=== PATIENT | female | born 1950 | race Caucasian/White ===

== ENCOUNTER 2020-02-09 14:38 | Inpatient (IN) | payer OTHER, MEDICARE ==
--- NOTE | 2020-02-09 15:29 | ER Document Report ---
ED General - General Chief Complaint: Vomiting/Diarrhea Stated Complaint: VOMITING/DIARRHEA Time Seen by Provider: 02/09/20 15:28 Mode of Arrival: Medic Information source: Patient TRAVEL OUTSIDE OF THE [place] IN LAST 30 DAYS: No - HPI Onset: This morning Onset/Duration: Sudden Quality of pain: No pain Severity: Severe Pain Level: Denies Associated symptoms: Nausea, Vomiting, Weakness Exacerbated by: Denies Relieved by: Denies Similar symptoms previously: No Recently seen / treated by doctor: No Notes: 69 year old female with a history of HTN, CHF, Subclavian Obstruction, Appendectomy here in the ER for nausea, vomiting, diarrhea since this morning. The patient denies fevers, chills, sweats, known sick contacts, recent travel, ingestion of uncooked foods. The patient's last meal was lunch yesterday (TV dinner). The patient has noticed that her diarrhea is black in color. The patient says she has some mild pain in her rectal area before she has a bowel movement. The patient otherwise just has twinges of mild abdominal pains off and on. - Related Data Allergies/Adverse Reactions: Penicillins Allergy (Verified 02/09/20 17:48) Sulfa (Sulfonamide Antibiotics) Allergy (Verified 02/09/20 17:48) Past Medical History - General Information source: Patient - Social History Smoking Status: Current Some Day Smoker Frequency of alcohol use: Occasional Drug Abuse: None Lives with: Family Family History: Reviewed & Not Pertinent - Past Medical History Cardiac Medical History: Reports: Hx Congestive Heart Failure, Hx Hypertension Pulmonary Medical History: Reports: None EENT Medical History: Reports: None Neurological Medical History: Reports: None Endocrine Medical History: Reports: None Renal/ Medical History: Reports: None Malignancy Medical History: Reports: None GI Medical History: Reports: None Musculoskeletal Medical History: Reports None Skin Medical History: Reports None Psychiatric Medical History: Reports: None Traumatic Medical History: Reports: None Infectious Medical History: Reports: None Past Surgical History: Reports: Hx Appendectomy Review of Systems - Review of Systems Constitutional: No symptoms reported EENT: No symptoms reported Cardiovascular: No symptoms reported Respiratory: No symptoms reported, Stridor Gastrointestinal: Diarrhea, Nausea, Black stools Genitourinary: No symptoms reported Female Genitourinary: No symptoms reported Musculoskeletal: No symptoms reported Skin: No symptoms reported Hematologic/Lymphatic: No symptoms reported Neurological/Psychological: No symptoms reported -: Yes All other systems reviewed and negative Physical Exam - Vital signs Vitals: Resp 20 02/09/20 15:18 - Notes Notes: GENERAL: Somewhat ill-appearing, well-nourished and in no acute distress. HEAD: Atraumatic, normocephalic. EYES: Pupils equal round and reactive to light, extraocular movements intact, sclera anicteric, conjunctiva are normal. ENT: Normal external ears, nares patent, oropharynx clear without exudates. Moist mucous membranes. NECK: Normal range of motion, supple without lymphadenopathy or JVD. LUNGS: Breath sounds clear to auscultation bilaterally and equal. No wheezes rales or rhonchi. HEART: Regular rate and rhythm without murmurs, rubs or gallops. ABDOMEN: Soft, nontender, normoactive bowel sounds. No guarding, no rebound. No masses appreciated. EXTREMITIES: Normal range of motion, no pitting or edema. No clubbing or cyanosis. NEUROLOGICAL: Cranial nerves II through XII grossly intact. Normal speech, normal gait. PSYCH: Normal mood, normal affect. SKIN: Warm, Dry, normal turgor, no rashes or lesions noted. Course - Re-evaluation Re-evalutation: 02/09/20 17:22 The patient is here for nausea, vomiting, diarrhea, and black stools. Labs show elevated WBC count in the 20s and a hemoglobin in the 8s. Plan to obtain CT abdomen/pelvis to rule out an infectious process. Will likely admit regardless of outcome of the CT since patient's hemoglobin is in the 8s with no prior labs for comparison. An infectious process seems likely the primary issues followed by GI bleeding likely from inflammation. Patient says she last had a colonoscopy about 7 years ago and she had pre cancerous polyps then. 02/09/20 19:[address] shows ascending colitis. Patient treated with Levoquin and Flagyl and fluids. I consulted Dr. Ybarra of GI and he will follow along with the patient. Patient was admitted by Dr. Nice. - Vital Signs Vital signs: Temp Pulse Resp BP Pulse Ox 97 F L 18 117/68 96 02/09/20 15:19 02/09/20 18:50 02/09/20 18:50 02/09/20 19:00 - Laboratory Result Diagrams: 02/09/20 15:18 02/09/20 15:18 Laboratory results interpreted by me: 02/09/20 02/09/20 15:18 15:18 WBC 23.0 H RBC 2.57 L Hgb 8.4 L Hct 24.8 L RDW 14.1 H Seg Neuts % (Manual) 88 H Lymphocytes % (Manual) 5 L Abs Neuts (Manual) 20.9 H Sodium 134.8 L Chloride 109 H Carbon Dioxide 19 L BUN 47 H Glucose 113 H Total Protein 5.4 L Albumin 3.1 L - Diagnostic Test Radiology reviewed: Image reviewed, Reports reviewed Discharge - Discharge Clinical Impression: Colitis Nausea & vomiting Qualifiers: Vomiting type: unspecified Vomiting Intractability: intractable Qualified Code(s): R11.2 - Nausea with vomiting, unspecified Diarrhea Qualifiers: Diarrhea type: unspecified type Qualified Code(s): R19.7 - Diarrhea, unspecified GI bleed Qualifiers: GI bleed type/associated pathology: unspecified gastrointestinal hemorrhage type Qualified Code(s): K92.2 - Gastrointestinal hemorrhage, unspecified Condition: Fair Disposition: ADMITTED INPATIENT Admitting Provider: Tex (Hospitalist) Unit Admitted: [facility]
[2020-02-09] MEDS ORDERED: ONDANSETRON HCL INJ/PF 4 MG/2 ML SDV IV ONE (15:43)
[2020-02-09] MEDS ORDERED: NORMAL SALINE 1000 ML 1,000 ML IV ONE (15:44)
[2020-02-09 15:48] LABS: HEMATOCRIT 24.8 % (36.0-47.0); HEMOGLOBIN 8.4 g/dL (12.0-15.5); MEAN CORPUSCULAR HEMOGLOBIN 32.5 pg (27.0-33.4); MEAN CORPUSCULAR HGB CONC 33.7 g/dL (32.0-36.0); MEAN CORPUSCULAR VOLUME 97 fl (80-97); PLATELET COUNT 302 10^3/uL (150-450); RED BLOOD COUNT 2.57 10^6/uL (3.72-5.28); RED CELL DISTRIBUTION WIDTH 14.1 % (11.5-14.0)
[2020-02-09 16:04] LABS: ALBUMIN 3.1 g/dL (3.5-5.0); ALKALINE PHOSPHATASE 40 U/L (38-126); ANION GAP 7 (5-19); ASPARTATE AMINO TRANSFERASE 15 U/L (14-36); BILIRUBIN,TOTAL 0.3 mg/dL (0.2-1.3); BLOOD UREA NITROGEN 47 mg/dL (7-20); CALCIUM 8.8 mg/dL (8.4-10.2); CARBON DIOXIDE 19 mmol/L (22-30); CHLORIDE 109 mmol/L (98-107); GLUCOSE 113 mg/dL (75-110); POTASSIUM 4.9 mmol/L (3.6-5.0); TOTAL PROTEIN 5.4 g/dL (6.3-8.2)
[2020-02-09 16:28] LABS: ABSOLUTE LYMPHOCYTES# (MANUAL) 1.2 10^3/uL (0.5-4.7); ABSOLUTE MONOCYTES # (MANUAL) 0.9 10^3/uL (0.1-1.4); BAND NEUTROPHILS % (MANUAL) 3 % (3-5); BASOPHILS % (MANUAL) 0 % (0-2); EOSINOPHILS % (MANUAL) 0 % (0-6); LYMPHOCYTES % (MANUAL) 5 % (13-45); MONOCYTES % (MANUAL) 4 % (3-13); SEGMENTED NEUTROPHILS % (MAN) 88 % (42-78); TOTAL CELLS COUNTED 100
[2020-02-09 16:29] LABS: ANISOCYTOSIS SLIGHT; PLATELET COMMENT ADEQUATE
--- NOTE | 2020-02-09 18:23 | RADIOLOGY REPORT (SQ) ---
EXAM DESCRIPTION: CT ABD/PELVIS WITH IV ONLY IMAGES COMPLETED DATE/TIME: 02/09/2020 6:05 pm REASON FOR STUDY: eval for cause of abdominal pain and GI gleeding COMPARISON: None. TECHNIQUE: CT scan of the abdomen and pelvis performed using helical scanning technique with dynamic intravenous contrast injection. No oral contrast. Images reviewed with lung, soft tissue, and bone windows. Reconstructed coronal and sagittal MPR images reviewed. Delayed images for evaluation of the urinary system also acquired. All images stored on PACS. All CT scanners at this facility use dose modulation, iterative reconstruction, and/or weight based d osing when appropriate to reduce radiation dose to as low as reasonably achievable (ALARA). [facility]: Dose Right [facility]: CareDose [facility]: Dose Right [facility]: Teradose 4D [facility]: [employer] CONTRAST TYPE AND DOSE: contrast/concentration: Isovue 350.00 mg/ml; Total Contrast Delivered: 56.0 ml; Total Saline Delivered: 65.0 ml RENAL FUNCTION: GFR > 60. RADIATION DOSE: CT Rad equipment meets quality standard of care and radiation dose reduction techniq ues were employed. CTDIvol: 4.8 - 5.2 mGy. DLP: 483 mGy-cm.. LIMITATIONS: None. FINDINGS: LOWER CHEST: No significant findings. No nodules or infiltrates. LIVER: Normal size. No masses. No dilated ducts. SPLEEN: Normal size. No focal lesions. PANCREAS: Calcifications in the pancreas suggestive of chronic pancreatitis. No active inflammatory changes currently. No gross mass or duct dilatation. GALLBLADDER: Mildly distended. No identified stones by CT criteria. No inflammatory changes to sugge st cholecystitis. ADRENAL GLANDS: No significant masses or asymmetry. RIGHT KIDNEY AND URETER: Suspect tiny cysts. No obstructive changes or stones. LEFT KIDNEY AND URETER: Sizable stone in the renal pelvis measures almost 1 cm in maximal dimension w ith Hounsfield units of greater than 1,400. No suggestion of obstruction. AORTA AND VESSELS: Heavily atherosclerotic aorta. No aneurysm detected. No arterial occlusion or ve nous clot. RETROPERITONEUM: No retroperitoneal adenopathy, hemorrhage or masses. BOWEL AND PERITONEAL CAVITY: Thickening of the wall of the ascending colon is suggested. Remaining c olon is decompressed and looks normal. No mechanical bowel obstruction. No ascites or abnormal gas. APPENDIX: Surgically absent. PELVIS: No mass. No free fluid. Normal bladder. ABDOMINAL WALL: No masses. No hernias. BONES: Osteopenic without fracture or bone lesion. Degenerative listhesis at the lumbosacral junctio n. OTHER: No other significant finding. IMPRESSION: 1. Suspicious for ascending colitis. 2. Heavy atherosclerosis. 3. Changes of chronic pancreatitis. 4. Nonobstructive left nephrolithiasis. TECHNICAL DOCUMENTATION: JOB ID: [id number] Quality ID # [id number]: Final reports with documentation of one or more dose reduction techniques (e.g., Au tomated exposure control, adjustment of the mA and/or kV according to patient size, use of iterative reconstruction technique) 2010 [employer]- All Rights Reserved Reading location - IP/workstation name: [email or web address]
[2020-02-09] MEDS ORDERED: METRONIDAZOLE 500 MG/NS RTU 500 MG/100 ML RTUPB IV ONE (18:29)
[2020-02-09] MEDS ORDERED: LEVOFLOXACIN 750 MG/D5W RTU 750 MG/150 ML RTUPB IV ONE (18:29)
--- NOTE | 2020-02-09 18:58 | PDOC CONSULTATION ---
Consultation Consult Date: 02/09/20 Provider Consulted: RAYA LOPEZ Consult reason:: melena, diarrhea. chronic pancreatitis. abnormal ct scan showing possibl ascending colitis History of Present Illness History of Present Illness: LINDA JOINER is a 69 year old female patient presents with weakness , melena and diarrhea had CT scan done in the ED noted to have several abnormal findings including chronic pancreatitis and ascending colitis referred for admission requesting GI consult patient noted to be anemic and complaining of black stools needs to be admitted to have GI work up done suspicious for possible infectious process but will need both EGD ( to work up for melena and her anemia) also will need colonoscopy to exclude causes of her ascending colitis could be infectious but her diarrhea may be more due to her chronic pancreatitis will exclude other etiology Past Medical History Cardiac Medical History: Reports: Congestive Heart Failure, Hypertension Pulmonary Medical History: Reports: None EENT Medical History: Reports: None Neurological Medical History: Reports: None Endocrine Medical History: Reports: None Renal/ Medical History: Reports: None Malignancy Medical History: Reports: None GI Medical History: Reports: None Musculoskeltal Medical History: Reports: None Skin Medical History: Reports: None Psychiatric Medical History: Reports: None Traumatic Medical History: Reports: None Infectious Medical History: Reports: None Past Surgical History Past Surgical History: Reports: Appendectomy Social History Lives with: Family Smoking Status: Current Some Day Smoker Family History Family History: Reviewed & Not Pertinent Parental Family History Reviewed: Yes Children Family History Reviewed: Unknown Sibling(s) Family History Reviewed.: Unknown Medication/Allergy Allergies/Adverse Reactions: Penicillins Allergy (Verified 02/09/20 17:48) Sulfa (Sulfonamide Antibiotics) Allergy (Verified 02/09/20 17:48) Review of Systems Constitutional: PRESENT: weakness. ABSENT: fever(s), headache(s), night sweats Eyes: ABSENT: visual disturbances Ears: ABSENT: hearing changes Nose, Mouth, and Throat: ABSENT: mouth pain, sore throat Respiratory: ABSENT: dyspnea, hemoptysis Gastrointestinal: ABSENT: diarrhea, dysphagia, hematochezia Genitourinary: ABSENT: dysuria, hematuria Integumentary: ABSENT: lesions, pruritus Neurological: ABSENT: syncope, tingling, tremor(s), vertigo Endocrine: ABSENT: polydipsia, polyphagia, polyuria Hematologic/Lymphatic: ABSENT: easy bruising Physical Exam Vital Signs: Temp Pulse Resp BP Pulse Ox 97 F L 19 122/63 99 02/09/20 15:19 02/09/20 18:04 02/09/20 17:01 02/09/20 16:03 Intake & Output 02/08/20 02/09/20 02/10/20 06:59 06:59 06:59 Intake Total 1000 Balance 1000 Weight 58.967 kg General appearance: PRESENT: mild distress Head exam: PRESENT: atraumatic, normocephalic Eye exam: PRESENT: EOMI, PERRLA, scleral icterus Mouth exam: PRESENT: moist, neck supple Neck exam: ABSENT: meningismus, tenderness, thyromegaly Respiratory exam: PRESENT: symmetrical. ABSENT: rhonchi, stridor Cardiovascular exam: PRESENT: RRR, +S1, +S2 GI/Abdominal exam: PRESENT: normal bowel sounds, soft. ABSENT: Arango's sign, organolmegaly, rebound Extremities exam: ABSENT: joint swelling, pedal edema Musculoskeletal exam: PRESENT: full ROM Neurological exam: PRESENT: alert, altered. ABSENT: CN II-XII grossly intact Skin exam: PRESENT: normal color. ABSENT: mottled, pallor, urticaria, vesicles Results Laboratory Results: 02/09/20 15:18 02/09/20 15:18 02/09/20 02/09/20 02/09/20 15:18 15:18 15:18 WBC 23.0 H RBC 2.57 L Hgb 8.4 L Hct 24.8 L MCV 97 MCH 32.5 MCHC 33.7 RDW 14.1 H Plt Count 302 Seg Neutrophils % Not Reportable Sodium 134.8 L Potassium 4.9 Chloride 109 H Carbon Dioxide 19 L Anion Gap 7 BUN 47 H Creatinine 0.87 Est GFR ( Amer) > 60 Glucose 113 H Calcium 8.8 Magnesium 1.7 Total Bilirubin 0.3 AST 15 Alkaline Phosphatase 40 Total Protein 5.4 L Albumin 3.1 L Blood Type A POSITIVE Antibody Screen NEGATIVE Impressions: Abdomen/Pelvis CT 02/09/20 16:59 IMPRESSION: 1. Suspicious for ascending colitis. 2. Heavy atherosclerosis. 3. Changes of chronic pancreatitis. 4. Nonobstructive left nephrolithiasis. Assessment & Plan - Diagnosis (1) Abnormal CT of the abdomen Plan: ascending colitis, will need colonoscopy Risks, benefits and alternatives are discussed will schedule once stabalized (2) Melena Plan: GI bleeding , will need EGD associated with anemia can do at same time as colonoscopy start on PPI for now (3) Chronic pancreatitis Plan: could be the cause of her diarrhea trial of pancreatic enzymes prior to each meal (4) Diarrhea Qualifiers: Diarrhea type: unspecified type Qualified Code(s): R19.7 - Diarrhea, unspecified Plan: send stool studies for infectious causes however infectious processes tend to be stevens colonic could be due to her pancreatitis an isolated segment on CT could be an indication for possible ischemia as well will need colonoscopy as discussed above (5) Nausea & vomiting Qualifiers: Vomiting type: unspecified Vomiting Intractability: intractable Qualified Code(s): R11.2 - Nausea with vomiting, unspecified Is this a current diagnosis for this admission?: Yes Plan: will need EGD for peptic ulcer disease also having possible GI bleeding will need to be started on a PPI - Time Time Spent: 50 to 70 Minutes
[2020-02-09] MEDS ORDERED: PANTOPRAZOLE SODIUM 40 MG VIAL IV PRN (19:14)
[2020-02-09] MEDS ORDERED: PANTOPRAZOLE SODIUM 40 MG VIAL IV ONE ×2 (19:14→19:32)
[2020-02-09] MEDS ORDERED: HYDRALAZINE HCL INJ/PF 20 MG/1 ML SDV IV PRN (19:16)
[2020-02-09] MEDS ORDERED: CALCIUM CARBONATE 500 MG TAB.CHEW PO PRN (19:16)
[2020-02-09] MEDS ORDERED: IPRATROPIUM/ALBUTEROL 0.5-2.5 MG/3 ML AMPUL NEB PRN (19:17)
[2020-02-09] MEDS ORDERED: NORMAL SALINE 1000 ML 1,000 ML IV SCH ×2 (19:30→22:00)
[2020-02-09] MEDS: NORMAL SALINE 100 ML with PANTOPRAZOLE SODIUM 80 MG IV PRN ×2 (19:43)
[2020-02-09] MEDS ORDERED: PANTOPRAZOLE SODIUM 80 MG in NORMAL SALINE 100 ML IV ONE (20:30)
[2020-02-09] MEDS: NORMAL SALINE 1000 ML 1,000 ML IV SCH (21:00)
[2020-02-09] MEDS ORDERED: NORMAL SALINE 1000 ML 1,000 ML IV PRN (21:38)
[2020-02-09] MEDS ORDERED: ONDANSETRON HCL INJ/PF 4 MG/2 ML SDV IV PRN (22:31)
[2020-02-09] MEDS: METRONIDAZOLE 500 MG TABLET PO SCH (23:14)
[2020-02-09 23:37] LABS: APPEARANCE,URINE CLEAR; BILIRUBIN,URINE NEGATIVE (NEGATIVE); COLOR,URINE YELLOW; GLUCOSE, URINE NEGATIVE (NEGATIVE); KETONES,URINE NEGATIVE (NEGATIVE); LEUKOCYTE ESTERASE,URINE TRACE (NEGATIVE); NITRITE,URINE NEGATIVE (NEGATIVE); PROTEIN,URINE NEGATIVE (NEGATIVE); URINE SPECIFIC GRAVITY 1.032; UROBILINOGEN,URINE NEGATIVE mg/dL (<2.0)
[2020-02-10] MEDS: NORMAL SALINE 100 ML with PANTOPRAZOLE SODIUM 80 MG IV PRN ×6 (00:58→20:44)
[2020-02-10] MEDS: NORMAL SALINE 1000 ML 1,000 ML IV SCH (03:13)
--- NOTE | 2020-02-10 04:56 | PDOC H&P ---
History of Present Illness Admission Date/PCP: 02/09/20 19:25 Patient complains of: Nausea vomiting diarrhea History of Present Illness: LINDA JOINER is a 69 year old female with a past medical history of hypertension, congestive heart failure, subclavian obstruction, COPD and chronic bronchitis. She presents with 12 hours of abdominal pain nausea vomiting and diarrhea. Vomiting is without blood and consisted of oral intake. Diarrhea was black in color. She denies suspect meals, infectious contacts friends or family with similar symptoms or previous episode. In the emergency department she is found to have leukocytosis, anemia and Hemoccult positive stools. CT reveals ascending colitis. Her sports trainer Dr. Ybarra is consulted and she is started on Levaquin and Flagyl and referred to the hospitalist for admission. Past Medical History Cardiac Medical History: Reports: Congestive Heart Failure, Hypertension Pulmonary Medical History: Reports: Bronchitis, Chronic Obstructive Pulmonary Disease (COPD) EENT Medical History: Reports: None Neurological Medical History: Reports: None Endocrine Medical History: Reports: None Renal/ Medical History: Reports: None Malignancy Medical History: Reports: None GI Medical History: Reports: None Musculoskeltal Medical History: Reports: None Skin Medical History: Reports: None Psychiatric Medical History: Reports: Tobacco Dependency Traumatic Medical History: Reports: None Infectious Medical History: Reports: None Past Surgical History Past Surgical History: Reports: Appendectomy Social History Information Source: Patient, COUNT INCLUDES [facility] Records Lives with: Family Smoking Status: Current Every Day Smoker Frequency of Alcohol Use: Social - 2 glasses of wine per night Drugs: None - Advance Directive Resuscitation Status: Full Code Family History Family History: Hypertension Parental Family History Reviewed: Yes Children Family History Reviewed: Yes Sibling(s) Family History Reviewed.: Yes Medication/Allergy Home Medications: Amlodipine Besylate [Norvasc 2.5 mg Tablet] 2.5 mg PO DAILY 02/09/20 Aspirin [Adult Low Dose Aspirin EC] 81 mg PO DAILY 02/09/20 Atorvastatin Calcium [Lipitor 40 mg Tablet] 40 mg PO QHS 02/09/20 Cholecalciferol (Vitamin D3) [Vitamin D3 1000 Unit Tablet] 1,000 unit PO DAILY 02/09/20 Clopidogrel Bisulfate [Plavix 75 mg Tablet] 75 mg PO DAILY 02/09/20 Duloxetine HCl [Cymbalta 30 mg Capsule.dr] 30 mg PO QAM 02/09/20 Duloxetine HCl [Cymbalta 30 mg Capsule.dr] 60 mg PO QPM 02/09/20 Fexofenadine HCl [Michaela Allergy] 180 mg PO DAILY 02/09/20 Irbesartan 150 mg PO DAILY 02/09/20 Montelukast Sodium [Singulair 10 mg Tablet] 10 mg PO QHS 02/09/20 Nystatin [Mycostatin Ointment 15 gm] 1 applic TOP BIDP PRN 02/09/20 Omeprazole 20 mg PO QAM 02/09/20 Oxymetazoline HCl [Afrin 0.05% Nasal [place] 15 ml Bottle] 1 spray NASL DAILYP PRN 02/09/20 Allergies/Adverse Reactions: Penicillins Allergy (Verified 02/09/20 17:48) Sulfa (Sulfonamide Antibiotics) Allergy (Verified 02/09/20 17:48) Review of Systems Constitutional: ABSENT: chills, fever(s), headache(s), weight gain, weight loss Eyes: ABSENT: visual disturbances Ears: ABSENT: hearing changes Cardiovascular: ABSENT: chest pain, dyspnea on exertion, edema, orthropnea, palpitations Respiratory: ABSENT: cough, hemoptysis Gastrointestinal: ABSENT: abdominal pain, constipation, diarrhea, hematemesis, hematochezia, nausea, vomiting Genitourinary: ABSENT: dysuria, hematuria Musculoskeletal: ABSENT: joint swelling Integumentary: ABSENT: rash, wounds Neurological: ABSENT: abnormal gait, abnormal speech, confusion, dizziness, focal weakness, syncope Psychiatric: ABSENT: anxiety, depression, homidical ideation, suicidal ideation Endocrine: ABSENT: cold intolerance, heat intolerance, polydipsia, polyuria Hematologic/Lymphatic: ABSENT: easy bleeding, easy bruising Physical Exam Vital Signs: Temp Pulse Resp BP Pulse Ox 98.2 F 91 16 97/49 L 95 02/10/20 03:34 02/10/20 03:34 02/10/20 03:34 02/10/20 03:34 02/10/20 03:34 Intake & Output 02/08/20 02/09/20 02/10/20 11:59 11:59 11:59 Intake Total 2570 Output Total 175 Balance 2395 Weight 56.3 kg General appearance: PRESENT: cooperative, mild distress, well-developed, well- nourished Head exam: PRESENT: atraumatic, normocephalic Eye exam: PRESENT: conjunctiva pink, EOMI, PERRLA. ABSENT: scleral icterus Ear exam: PRESENT: normal external ear exam Mouth exam: PRESENT: moist, tongue midline Neck exam: ABSENT: carotid bruit, JVD, lymphadenopathy, thyromegaly Respiratory exam: PRESENT: prolonged expiratory phas, wheezes. ABSENT: rales, retraction, rhonchi, symmetrical Cardiovascular exam: PRESENT: RRR. ABSENT: diastolic murmur, rubs, systolic murmur Pulses: PRESENT: normal dorsalis pedis pul Vascular exam: PRESENT: normal capillary refill GI/Abdominal exam: PRESENT: hyperactive bowel sounds, normal bowel sounds, soft, tenderness - Left lower quadrant. ABSENT: distended, guarding, mass, organolmegaly, rebound Rectal exam: PRESENT: deferred Extremities exam: PRESENT: full ROM. ABSENT: calf tenderness, clubbing, pedal edema Neurological exam: PRESENT: alert, awake, oriented to person, oriented to place, oriented to time, oriented to situation, CN II-XII grossly intact. ABSENT: motor sensory deficit Psychiatric exam: PRESENT: appropriate affect, normal mood. ABSENT: homicidal ideation, suicidal ideation Skin exam: PRESENT: dry, intact, warm. ABSENT: cyanosis, rash Results Laboratory Results: 02/09/20 15:18 02/09/20 15:18 02/09/20 02/09/20 02/09/20 15:18 15:18 15:18 WBC 23.0 H RBC 2.57 L Hgb 8.4 L Hct 24.8 L MCV 97 MCH 32.5 MCHC 33.7 RDW 14.1 H Plt Count 302 Seg Neutrophils % Not Reportable Sodium 134.8 L Potassium 4.9 Chloride 109 H Carbon Dioxide 19 L Anion Gap 7 BUN 47 H Creatinine 0.87 Est GFR ( Amer) > 60 Glucose 113 H Calcium 8.8 Magnesium 1.7 Total Bilirubin 0.3 AST 15 Alkaline Phosphatase 40 Total Protein 5.4 L Albumin 3.1 L Urine Color Urine Appearance Urine pH Ur Specific [place] Urine Protein Urine Glucose (UA) Urine Ketones Urine Blood Urine Nitrite Ur Leukocyte Esterase Urine WBC (Auto) Urine RBC (Auto) Blood Type A POSITIVE Antibody Screen NEGATIVE 02/09/20 23:22 WBC RBC Hgb Hct MCV MCH MCHC RDW Plt Count Seg Neutrophils % Sodium Potassium Chloride Carbon Dioxide Anion Gap BUN Creatinine Est GFR ( Amer) Glucose Calcium Magnesium Total Bilirubin AST Alkaline Phosphatase Total Protein Albumin Urine Color YELLOW Urine Appearance CLEAR Urine pH 6.0 Ur Specific [place] 1.032 Urine Protein NEGATIVE Urine Glucose (UA) NEGATIVE Urine Ketones NEGATIVE Urine Blood LARGE H Urine Nitrite NEGATIVE Ur Leukocyte Esterase TRACE H Urine WBC (Auto) 16 Urine RBC (Auto) 108 Blood Type Antibody Screen Impressions: Abdomen/Pelvis CT 02/09/20 16:59 IMPRESSION: 1. Suspicious for ascending colitis. 2. Heavy atherosclerosis. 3. Changes of chronic pancreatitis. 4. Nonobstructive left nephrolithiasis. Assessment and Plan - Diagnosis (1) Colitis Is this a current diagnosis for this admission?: Yes Plan: Unclear source, likely infectious, trial Levaquin and Flagyl. IV fluid resuscitation. Follow-up blood culture, CBC and GI consultation for possible endoscopy. (2) Nausea & vomiting Qualifiers: Vomiting type: unspecified Vomiting Intractability: intractable Qualified Code(s): R11.2 - Nausea with vomiting, unspecified Is this a current diagnosis for this admission?: Yes Plan: Secondary to #1, symptomatic management, IV fluid resuscitation, follow-up chemistry (3) Abnormal CT of the abdomen Is this a current diagnosis for this admission?: Yes Plan: Suggestive of chronic pancreatitis, outpatient GI follow-up. (4) Chronic pancreatitis Is this a current diagnosis for this admission?: Yes Plan: Possible chronic alcohol exposure. Follow-up lipase (5) GI bleed Qualifiers: GI bleed type/associated pathology: unspecified gastrointestinal hemorrhage type Qualified Code(s): K92.2 - Gastrointestinal hemorrhage, unspecified Is this a current diagnosis for this admission?: Yes Plan: Unclear source upper versus lower trial IV Protonix, transfuse hemoglobin less than 7, follow-up GI consultation for endoscopy, CBC and anemia labs, (6) Tobacco abuse Is this a current diagnosis for this admission?: Yes Plan: Nicotine cessation counseling performed, nicotine replacement options discussed. - Time Time Spent with patient: 25-34 minutes - Inpatient Certification Medical Necessity: Need Close Monitoring Due to Risk of Patient Decompensation
[2020-02-10] MEDS: METRONIDAZOLE 500 MG TABLET PO SCH ×3 (05:14→21:44)
[2020-02-10 05:33] LABS: IRON(TIBC) 159.4 ug/dL (37-170)
[2020-02-10 05:35] LABS: CALCIUM 7.6 mg/dL (8.4-10.2); CARBON DIOXIDE 17 mmol/L (22-30); CHLORIDE 116 mmol/L (98-107); GLUCOSE 85 mg/dL (75-110)
[2020-02-10 05:51] LABS: BLOOD UREA NITROGEN 26 mg/dL (7-20); POTASSIUM 3.6 mmol/L (3.6-5.0)
[2020-02-10 05:52] LABS: ANION GAP 4 (5-19)
[2020-02-10] MEDS ORDERED: PANTOPRAZOLE SODIUM 20 MG TABLET.DR PO SCH (06:00)
[2020-02-10 06:12] LABS: ABSOLUTE LYMPHOCYTES (AUTO) 1.8 10^3/uL (0.5-4.7); ABSOLUTE MONOCYTES (AUTO) 0.8 10^3/uL (0.1-1.4); BASOPHILS % (AUTO) 0.2 % (0-2); HEMATOCRIT 15.8 % (36.0-47.0); TOTAL CELLS COUNTED % (AUTO) 100 %
[2020-02-10 06:14] LABS: ABSOLUTE RETICS # 0.046 10^6/uL (0.028-0.122)
[2020-02-10 06:16] LABS: ABSOLUTE EOSINOPHILS # (AUTO) 0.1 10^3/uL (0.0-0.6); ABSOLUTE NEUT (AUTO) 5.7 10^3/uL (1.7-8.2); EOSINOPHILS % (AUTO) 0.8 % (0-6); LYMPHOCYTES % (AUTO) 21.6 % (13-45); MEAN CORPUSCULAR HEMOGLOBIN 33.6 pg (27.0-33.4); MEAN CORPUSCULAR HGB CONC 35.3 g/dL (32.0-36.0); MEAN CORPUSCULAR VOLUME 95 fl (80-97); MONOCYTES % (AUTO) 9.2 % (3-13); PLATELET COUNT 209 10^3/uL (150-450); RED BLOOD COUNT 1.66 10^6/uL (3.72-5.28); RED CELL DISTRIBUTION WIDTH 13.7 % (11.5-14.0); SEGMENTED NEUTROPHILS % (AUTO) 68.2 % (42-78); WHITE BLOOD COUNT 8.3 10^3/uL (4.0-10.5)
[2020-02-10 06:19] LABS: HEMOGLOBIN 5.6 g/dL (12.0-15.5)
[2020-02-10] MEDS ORDERED: NORMAL SALINE 250 ML IV PRN ×2 (07:49)
--- NOTE | 2020-02-10 08:44 | PDOC PROGRESS REPORT ---
Subjective Progress Note for:: 02/10/20 Subjective:: drop in Hgb overnight will probably need a transfusion will start prep for EGD and colonoscopy tomorrow am CT scan noted colitis in the ascending colon worsening anemia continue PPI for now Reason For Visit: GI BLEED,ANEMIA,COLITIS Physical Exam Vital Signs: Temp Pulse Resp BP Pulse Ox 98.4 F 92 15 93/49 L 96 02/10/20 07:36 02/10/20 07:36 02/10/20 07:36 02/10/20 07:36 02/10/20 07:36 Intake & Output 02/09/20 02/10/20 02/11/20 06:59 06:59 06:59 Intake Total 2570 Output Total 950 Balance 1620 Weight 56.3 kg General appearance: PRESENT: mild distress, well-developed, well-nourished Head exam: PRESENT: atraumatic, normocephalic Eye exam: PRESENT: EOMI, PERRLA. ABSENT: scleral icterus Mouth exam: PRESENT: moist, neck supple Throat exam: ABSENT: tonsillar exudate, tonsillogmegaly Neck exam: ABSENT: meningismus, tenderness, thyromegaly Respiratory exam: PRESENT: symmetrical, unlabored. ABSENT: tachypnea, wheezes Cardiovascular exam: PRESENT: RRR, +S1, +S2 GI/Abdominal exam: PRESENT: soft. ABSENT: rebound, rigid, tenderness Extremities exam: ABSENT: joint swelling Neurological exam: PRESENT: oriented to time, oriented to situation, CN II-XII grossly intact Focused psych exam: ABSENT: restlessness Skin exam: PRESENT: normal color. ABSENT: mottled, pallor, urticaria, vesicles Results Laboratory Results: 02/10/20 05:46 02/10/20 04:45 02/09/20 02/09/20 02/09/20 15:18 15:18 15:18 WBC 23.0 H RBC 2.57 L Hgb 8.4 L Hct 24.8 L MCV 97 MCH 32.5 MCHC 33.7 RDW 14.1 H Plt Count 302 Seg Neutrophils % Not Reportable Retic Count (auto) Absolute Retic Sodium 134.8 L Potassium 4.9 Chloride 109 H Carbon Dioxide 19 L Anion Gap 7 BUN 47 H Creatinine 0.87 Est GFR ( Amer) > 60 Glucose 113 H Calcium 8.8 Magnesium 1.7 Iron TIBC % Saturation Ferritin Total Bilirubin 0.3 AST 15 Alkaline Phosphatase 40 Total Protein 5.4 L Albumin 3.1 L Lipase Vitamin B12 Folate Urine Color Urine Appearance Urine pH Ur Specific [place] Urine Protein Urine Glucose (UA) Urine Ketones Urine Blood Urine Nitrite Ur Leukocyte Esterase Urine WBC (Auto) Urine RBC (Auto) Blood Type A POSITIVE Antibody Screen NEGATIVE 02/09/20 02/10/20 02/10/20 23:22 04:45 04:45 WBC Cancelled RBC Cancelled Hgb Cancelled Hct Cancelled MCV Cancelled MCH Cancelled MCHC Cancelled RDW Cancelled Plt Count Cancelled Seg Neutrophils % Cancelled Retic Count (auto) Absolute Retic Sodium 136.6 L Potassium 3.6 D Chloride 116 H Carbon Dioxide 17 L Anion Gap 4 L BUN 26 H D Creatinine 0.69 Est GFR ( Amer) > 60 Glucose 85 Calcium 7.6 L Magnesium Iron TIBC % Saturation Ferritin Total Bilirubin AST Alkaline Phosphatase Total Protein Albumin Lipase Vitamin B12 Folate Urine Color YELLOW Urine Appearance CLEAR Urine pH 6.0 Ur Specific [place] 1.032 Urine Protein NEGATIVE Urine Glucose (UA) NEGATIVE Urine Ketones NEGATIVE Urine Blood LARGE H Urine Nitrite NEGATIVE Ur Leukocyte Esterase TRACE H Urine WBC (Auto) 16 Urine RBC (Auto) 108 Blood Type Antibody Screen 02/10/20 02/10/20 02/10/20 04:45 04:45 04:45 WBC RBC Hgb Hct MCV MCH MCHC RDW Plt Count Seg Neutrophils % Retic Count (auto) Cancelled Absolute Retic Cancelled Sodium Potassium Chloride Carbon Dioxide Anion Gap BUN Creatinine Est GFR ( Amer) Glucose Calcium Magnesium Iron 159.4 TIBC 224 L % Saturation 71 Ferritin 65.60 Total Bilirubin AST Alkaline Phosphatase Total Protein Albumin Lipase 44.3 Vitamin B12 382.0 Folate 10.10 Urine Color Urine Appearance Urine pH Ur Specific [place] Urine Protein Urine Glucose (UA) Urine Ketones Urine Blood Urine Nitrite Ur Leukocyte Esterase Urine WBC (Auto) Urine RBC (Auto) Blood Type Antibody Screen 02/10/20 02/10/20 05:46 05:46 WBC 8.3 RBC 1.66 L Hgb 5.6 L D Hct 15.8 L MCV 95 MCH 33.6 H MCHC 35.3 RDW 13.7 Plt Count 209 Seg Neutrophils % 68.2 Retic Count (auto) 2.80 Absolute Retic Sodium Potassium Chloride Carbon Dioxide Anion Gap BUN Creatinine Est GFR ( Amer) Glucose Calcium Magnesium Iron TIBC % Saturation Ferritin Total Bilirubin AST Alkaline Phosphatase Total Protein Albumin Lipase Vitamin B12 Folate Urine Color Urine Appearance Urine pH Ur Specific [place] Urine Protein Urine Glucose (UA) Urine Ketones Urine Blood Urine Nitrite Ur Leukocyte Esterase Urine WBC (Auto) Urine RBC (Auto) Blood Type Antibody Screen Impressions: Abdomen/Pelvis CT 02/09/20 16:59 IMPRESSION: 1. Suspicious for ascending colitis. 2. Heavy atherosclerosis. 3. Changes of chronic pancreatitis. 4. Nonobstructive left nephrolithiasis. Assessment & Plan - Diagnosis (1) Abnormal CT of the abdomen Is this a current diagnosis for this admission?: Yes Plan: colitis noted in the ascending colon will need colonoscopy in light of new and worsening anemia Risks, benefits and alternatives are discussed with the patient will proceed in the am (2) Melena Is this a current diagnosis for this admission?: No Plan: will need EGD as well patient did have melena, nausea and vomiting will proceed in the am correct lytes and transfuse as necessary (3) Chronic pancreatitis Is this a current diagnosis for this admission?: Yes (4) Diarrhea Qualifiers: Diarrhea type: unspecified type Qualified Code(s): R19.7 - Diarrhea, unspecified Is this a current diagnosis for this admission?: Yes (5) Nausea & vomiting Qualifiers: Vomiting type: unspecified Vomiting Intractability: intractable Qualified Code(s): R11.2 - Nausea with vomiting, unspecified Is this a current diagnosis for this admission?: Yes - Time Time Spent with patient: 15-24 minutes
[2020-02-10] MEDS: DULOXETINE HCL 30 MG CAPSULE.DR PO SCH ×2 (09:52→17:30)
[2020-02-10] MEDS: LORATADINE 10 MG TABLET PO SCH (09:52)
[2020-02-10] MEDS ORDERED: ASPIRIN 81 MG TABLET, ENT COATED PO SCH (10:00)
[2020-02-10] MEDS ORDERED: CLOPIDOGREL BISULFATE 75 MG TABLET PO SCH (10:00)
[2020-02-10] MEDS ORDERED: LEVOFLOXACIN 750 MG/D5W RTU 750 MG/150 ML RTUPB IV SCH (10:00)
--- NOTE | 2020-02-10 11:30 | PDOC PROGRESS REPORT ---
Subjective Progress Note for:: 02/10/20 Subjective:: LINDA JOINER is a 69 year old female with a past medical history of hypertension, congestive heart failure, subclavian obstruction, COPD and chronic bronchitis who was admitted 02/09/2020 with acute blood loss anemia secondary to GI bleed and ascending colitis. Patient was seen on morning rounds. She was found resting in bed, comfortably, on supplemental oxygen via nasal cannula. She is A&O x4. She reports significant fatigue and generalized weakness. She denies shortness of breath, chest pain, palpitations. No further episodes of emesis. Patient specifically denies fever, chills, chest pain, palpitations, dyspnea, orthopnea, cough, abdominal pain, nausea vomiting and diarrhea. She has no other questions or concerns at this time. Reviewed plan of care with nursing. Reason For Visit: GI BLEED,ANEMIA,COLITIS Physical Exam Vital Signs: Temp Pulse Resp BP Pulse Ox 98.2 F 90 17 105/49 L 95 02/10/20 10:57 02/10/20 10:57 02/10/20 10:57 02/10/20 10:57 02/10/20 09:42 Intake & Output 02/09/20 02/10/20 02/11/20 06:59 06:59 06:59 Intake Total 2570 1098 Output Total 950 Balance 1620 1098 Weight 56.3 kg General appearance: PRESENT: no acute distress, cooperative, thin, well- developed Head exam: PRESENT: atraumatic, normocephalic Eye exam: PRESENT: conjunctiva pale, EOMI, PERRLA. ABSENT: scleral icterus Ear exam: PRESENT: normal external ear exam Mouth exam: PRESENT: moist, tongue midline Respiratory exam: PRESENT: clear to auscultation lisandra, symmetrical, unlabored, other - Supplemental oxygen via nasal cannula. ABSENT: rales, rhonchi, wheezes Cardiovascular exam: PRESENT: RRR, +S1, +S2. ABSENT: diastolic murmur, rubs, systolic murmur Pulses: PRESENT: +1 pedal pulses bilateral Vascular exam: PRESENT: normal capillary refill GI/Abdominal exam: PRESENT: hyperactive bowel sounds, soft, tenderness. ABSENT: distended, guarding, mass, organolmegaly, rebound Rectal exam: PRESENT: deferred Extremities exam: PRESENT: full ROM. ABSENT: calf tenderness, clubbing, pedal edema Neurological exam: PRESENT: alert, awake, oriented to person, oriented to place, oriented to time, oriented to situation, CN II-XII grossly intact. ABSENT: motor sensory deficit Psychiatric exam: PRESENT: appropriate affect, normal mood. ABSENT: homicidal ideation, suicidal ideation Skin exam: PRESENT: dry, intact, pallor, warm. ABSENT: cyanosis, rash Results Laboratory Results: 02/10/20 05:46 02/10/20 04:45 02/09/20 02/09/20 02/09/20 15:18 15:18 15:18 WBC 23.0 H RBC 2.57 L Hgb 8.4 L Hct 24.8 L MCV 97 MCH 32.5 MCHC 33.7 RDW 14.1 H Plt Count 302 Seg Neutrophils % Not Reportable Retic Count (auto) Absolute Retic Sodium 134.8 L Potassium 4.9 Chloride 109 H Carbon Dioxide 19 L Anion Gap 7 BUN 47 H Creatinine 0.87 Est GFR ( Amer) > 60 Glucose 113 H Calcium 8.8 Magnesium 1.7 Iron TIBC % Saturation Ferritin Total Bilirubin 0.3 AST 15 Alkaline Phosphatase 40 Total Protein 5.4 L Albumin 3.1 L Lipase Vitamin B12 Folate Urine Color Urine Appearance Urine pH Ur Specific [place] Urine Protein Urine Glucose (UA) Urine Ketones Urine Blood Urine Nitrite Ur Leukocyte Esterase Urine WBC (Auto) Urine RBC (Auto) Blood Type A POSITIVE Antibody Screen NEGATIVE 02/09/20 02/10/20 02/10/20 23:22 04:45 04:45 WBC Cancelled RBC Cancelled Hgb Cancelled Hct Cancelled MCV Cancelled MCH Cancelled MCHC Cancelled RDW Cancelled Plt Count Cancelled Seg Neutrophils % Cancelled Retic Count (auto) Absolute Retic Sodium 136.6 L Potassium 3.6 D Chloride 116 H Carbon Dioxide 17 L Anion Gap 4 L BUN 26 H D Creatinine 0.69 Est GFR ( Amer) > 60 Glucose 85 Calcium 7.6 L Magnesium Iron TIBC % Saturation Ferritin Total Bilirubin AST Alkaline Phosphatase Total Protein Albumin Lipase Vitamin B12 Folate Urine Color YELLOW Urine Appearance CLEAR Urine pH 6.0 Ur Specific [place] 1.032 Urine Protein NEGATIVE Urine Glucose (UA) NEGATIVE Urine Ketones NEGATIVE Urine Blood LARGE H Urine Nitrite NEGATIVE Ur Leukocyte Esterase TRACE H Urine WBC (Auto) 16 Urine RBC (Auto) 108 Blood Type Antibody Screen 02/10/20 02/10/20 02/10/20 04:45 04:45 04:45 WBC RBC Hgb Hct MCV MCH MCHC RDW Plt Count Seg Neutrophils % Retic Count (auto) Cancelled Absolute Retic Cancelled Sodium Potassium Chloride Carbon Dioxide Anion Gap BUN Creatinine Est GFR ( Amer) Glucose Calcium Magnesium Iron 159.4 TIBC 224 L % Saturation 71 Ferritin 65.60 Total Bilirubin AST Alkaline Phosphatase Total Protein Albumin Lipase 44.3 Vitamin B12 382.0 Folate 10.10 Urine Color Urine Appearance Urine pH Ur Specific [place] Urine Protein Urine Glucose (UA) Urine Ketones Urine Blood Urine Nitrite Ur Leukocyte Esterase Urine WBC (Auto) Urine RBC (Auto) Blood Type Antibody Screen 02/10/20 02/10/20 05:46 05:46 WBC 8.3 RBC 1.66 L Hgb 5.6 L D Hct 15.8 L MCV 95 MCH 33.6 H MCHC 35.3 RDW 13.7 Plt Count 209 Seg Neutrophils % 68.2 Retic Count (auto) 2.80 Absolute Retic Sodium Potassium Chloride Carbon Dioxide Anion Gap BUN Creatinine Est GFR ( Amer) Glucose Calcium Magnesium Iron TIBC % Saturation Ferritin Total Bilirubin AST Alkaline Phosphatase Total Protein Albumin Lipase Vitamin B12 Folate Urine Color Urine Appearance Urine pH Ur Specific [place] Urine Protein Urine Glucose (UA) Urine Ketones Urine Blood Urine Nitrite Ur Leukocyte Esterase Urine WBC (Auto) Urine RBC (Auto) Blood Type Antibody Screen Impressions: Abdomen/Pelvis CT 02/09/20 16:59 IMPRESSION: 1. Suspicious for ascending colitis. 2. Heavy atherosclerosis. 3. Changes of chronic pancreatitis. 4. Nonobstructive left nephrolithiasis. Assessment and Plan - Diagnosis (1) Acute blood loss anemia Is this a current diagnosis for this admission?: Yes Plan: Secondary to acute GI bleed. Precipitous drop of hemoglobin noted overnight. She is admitted with hemoglobin 8.4; decreased 5.6 today. No previous lab values on file to establish baseline. Of note, patient did receive 2.5 L IV fluid overnight which could account for some of the decrease. However, she is noted to have fatigue/weakness, generalized pallor, slightly elevated heart rate (90s) and hypotension. She is having crossed. We will transfuse 2 units PRBC. Discussed with nursing; will transfuse as quickly as patient tolerates. Discussed with blood bank; can have additional units available within 2 minutes if the need arises. Reviewed patient's case with Dr. Gaston; patient does not meet for intensive care services at this time, however, I appreciate him time and awareness of her current status should she rapidly deteriorate. GI is consulted; Dr. Ybarra plans for EGD/colonoscopy tomorrow. Continue PPI. Start Carafate. Have discontinued home dose aspirin and Plavix. (2) Colitis Is this a current diagnosis for this admission?: Yes Plan: Unclear source, likely infectious. GI is consulted; plans for colonoscopy. Continue empiric treatment with IV Levaquin and p.o. metronidazole. Antiemetics and analgesics as needed. (3) GI bleed Qualifiers: GI bleed type/associated pathology: unspecified gastrointestinal hemorrhage type Qualified Code(s): K92.2 - Gastrointestinal hemorrhage, unspecified Is this a current diagnosis for this admission?: Yes Plan: Unclear source upper versus lower. Occult stool positive. Remaining evaluation management as above. (4) Nausea & vomiting Qualifiers: Vomiting type: unspecified Vomiting Intractability: intractable Qualified Code(s): R11.2 - Nausea with vomiting, unspecified Is this a current diagnosis for this admission?: Yes Plan: Secondary to #1, symptomatic management, IV fluid resuscitation, follow-up chemistry Antiemetics as needed. (5) Tobacco abuse Is this a current diagnosis for this admission?: Yes Plan: Nicotine cessation encouraged, nicotine replacement therapy offered (6) Chronic pancreatitis Is this a current diagnosis for this admission?: Yes Plan: Outpatient GI follow-up.
[2020-02-10] MEDS: SUCRALFATE 1 GM TABLET PO SCH ×2 (11:58→17:30)
[2020-02-10] MEDS: LEVOFLOXACIN 750 MG/D5W RTU 750 MG/150 ML RTUPB IV SCH (17:30)
[2020-02-10 18:19] LABS: ABSOLUTE EOSINOPHILS # (AUTO) 0.1 10^3/uL (0.0-0.6); ABSOLUTE NEUT (AUTO) 7.5 10^3/uL (1.7-8.2); BASOPHILS % (AUTO) 0.3 % (0-2); HEMATOCRIT 27.1 % (36.0-47.0); LYMPHOCYTES % (AUTO) 18.8 % (13-45); MEAN CORPUSCULAR HEMOGLOBIN 30.8 pg (27.0-33.4); MEAN CORPUSCULAR HGB CONC 35.1 g/dL (32.0-36.0); MONOCYTES % (AUTO) 9.3 % (3-13); PLATELET COUNT 192 10^3/uL (150-450); RED BLOOD COUNT 3.09 10^6/uL (3.72-5.28); RED CELL DISTRIBUTION WIDTH 19.4 % (11.5-14.0); SEGMENTED NEUTROPHILS % (AUTO) 70.6 % (42-78); TOTAL CELLS COUNTED % (AUTO) 100 %; WHITE BLOOD COUNT 10.7 10^3/uL (4.0-10.5)
[2020-02-10 18:33] LABS: HEMOGLOBIN 9.5 g/dL (12.0-15.5); MEAN CORPUSCULAR VOLUME 88 fl (80-97)
[2020-02-10] MEDS: ATORVASTATIN CALCIUM 40 MG TABLET PO SCH (21:44)
[2020-02-10] MEDS: MONTELUKAST SODIUM 10 MG TABLET PO SCH (21:44)
[2020-02-10] MEDS: ACETAMINOPHEN 325 MG TABLET PO PRN (21:45)
[2020-02-10 23:39] LABS: HEMATOCRIT 25.8 % (36.0-47.0); HEMOGLOBIN 8.9 g/dL (12.0-15.5); MEAN CORPUSCULAR HEMOGLOBIN 29.8 pg (27.0-33.4); MEAN CORPUSCULAR HGB CONC 34.3 g/dL (32.0-36.0); MEAN CORPUSCULAR VOLUME 87 fl (80-97); PLATELET COUNT 186 10^3/uL (150-450); RED BLOOD COUNT 2.98 10^6/uL (3.72-5.28); RED CELL DISTRIBUTION WIDTH 19.5 % (11.5-14.0); WHITE BLOOD COUNT 8.8 10^3/uL (4.0-10.5)
[2020-02-11] MEDS: SUCRALFATE 1 GM TABLET PO SCH ×5 (00:44→23:13)
[2020-02-11] MEDS: METRONIDAZOLE 500 MG TABLET PO SCH ×3 (05:08→21:36)
[2020-02-11] MEDS: NORMAL SALINE 100 ML with PANTOPRAZOLE SODIUM 80 MG IV PRN ×2 (05:10)
[2020-02-11 05:41] LABS: HEMATOCRIT 26.3 % (36.0-47.0); HEMOGLOBIN 9.3 g/dL (12.0-15.5); MEAN CORPUSCULAR HEMOGLOBIN 30.8 pg (27.0-33.4); MEAN CORPUSCULAR HGB CONC 35.5 g/dL (32.0-36.0); MEAN CORPUSCULAR VOLUME 87 fl (80-97); PLATELET COUNT 192 10^3/uL (150-450); RED BLOOD COUNT 3.04 10^6/uL (3.72-5.28); RED CELL DISTRIBUTION WIDTH 19.8 % (11.5-14.0); WHITE BLOOD COUNT 8.3 10^3/uL (4.0-10.5)
[2020-02-11 06:13] LABS: BLOOD UREA NITROGEN 10 mg/dL (7-20); CALCIUM 8.2 mg/dL (8.4-10.2); CHLORIDE 112 mmol/L (98-107); GLUCOSE 100 mg/dL (75-110); POTASSIUM 3.3 mmol/L (3.6-5.0)
[2020-02-11 06:18] LABS: CARBON DIOXIDE 21 mmol/L (22-30)
[2020-02-11 06:20] LABS: ANION GAP 4 (5-19)
[2020-02-11] MEDS ORDERED: PROPOFOL INJ 200 MG/20 ML VIAL IV ONE (07:22)
[2020-02-11] MEDS ORDERED: LIDOCAINE 2% INJ-PF (100 MG/5 ML) SYRINGE ONE (07:22)
[2020-02-11] MEDS ORDERED: LORAZEPAM INJ 2 MG/1 ML VIAL IV PRN (07:22)
[2020-02-11] MEDS ORDERED: POTASSI CL 20 MEQ/50 ML RIDER 20 MEQ/50 ML RTUPB IV ONE (08:00)
[2020-02-11] MEDS: DULOXETINE HCL 30 MG CAPSULE.DR PO SCH ×2 (08:07→17:09)
--- NOTE | 2020-02-11 08:57 | Operative Report ---
Operative Report DATE OF SURGERY: 02/11/20 Operative Report: The risks benefits and alternatives of the procedure explained to the patient in detail and informed consent is obtained that GIF Olympus video scope was inserted into the patient's mouth and hypopharynx the esophagus is identified intubated and insufflated the scope was then advanced through the esophagus stomach and duodenum retroflexion maneuver is done the esophagus stomach and first and second portions of the duodenum examined PREOPERATIVE DIAGNOSIS: GI bleeding anemia POSTOPERATIVE DIAGNOSIS: Gastritis status post biopsy no evidence of upper GI bleeding needs colonoscopy OPERATION: EGD with biopsy SURGEON: RAYA LOPEZ ANESTHESIA: LMAC TISSUE REMOVED OR ALTERED: As noted above COMPLICATIONS: None. ESTIMATED BLOOD LOSS: None. INTRAOPERATIVE FINDINGS: As noted above. PROCEDURE: Patient tolerated the procedure well. No immediate postprocedure complications are noted. Patient is sent back to her room in good condition. Will need to start prep for colonoscopy since upper GI Endoscopy is negative We will wait on biopsies, monitor H&H
[2020-02-11] MEDS ORDERED: SUCCINYLCHOLINE CHLORIDE INJ 200 MG/10 ML VIAL ONE (09:23)
[2020-02-11] MEDS: LORATADINE 10 MG TABLET PO SCH (10:20)
[2020-02-11] MEDS ORDERED: PEG 3350/NA SULF,BICARB,CL/KCL 4000 ML PO SCH (12:00)
[2020-02-11] MEDS ORDERED: TRAMADOL HCL 50 MG TABLET PO PRN (12:19)
--- NOTE | 2020-02-11 12:27 | PDOC PROGRESS REPORT ---
Subjective Progress Note for:: 02/11/20 Subjective:: LINDA JOINER is a 69 year old female with a past medical history of hypertension, congestive heart failure, subclavian obstruction, COPD and chronic bronchitis who was admitted 02/09/2020 with acute blood loss anemia secondary to GI bleed and ascending colitis. Patient was seen on morning rounds after return from EGD. She was found resting in bed, comfortably, on supplemental oxygen via nasal cannula. She is A&O x4. She reports that she is feeling much better today; decreased fatigue/lethargy. She does report headache and requests medication. Otherwise, she has no new complaints. Patient specifically denies fever, chills, chest pain, palpitations, dyspnea, orthopnea, cough, abdominal pain, nausea vomiting and diarrhea. No concerns per nursing. Reason For Visit: GI BLEED,ANEMIA,COLITIS Physical Exam Vital Signs: Temp Pulse Resp BP Pulse Ox 98.4 F 83 16 110/63 99 02/11/20 11:54 02/11/20 11:54 02/11/20 11:54 02/11/20 11:54 02/11/20 11:54 Intake & Output 02/10/20 02/11/20 02/12/20 06:59 06:59 06:59 Intake Total 2570 3080 400 Output Total 950 2000 Balance 1620 1080 400 Weight 56.3 kg 48.8 kg General appearance: PRESENT: no acute distress, cooperative, thin, well- developed Head exam: PRESENT: atraumatic, normocephalic Eye exam: PRESENT: conjunctiva pink, EOMI, PERRLA. ABSENT: scleral icterus Mouth exam: PRESENT: moist, tongue midline Teeth exam: PRESENT: poor dentation Respiratory exam: PRESENT: clear to auscultation lisandra, symmetrical, unlabored. ABSENT: rales, rhonchi, wheezes Cardiovascular exam: PRESENT: RRR, +S1, +S2. ABSENT: diastolic murmur, rubs, systolic murmur Pulses: PRESENT: normal [place] pedis pul Vascular exam: PRESENT: normal capillary refill GI/Abdominal exam: PRESENT: normal bowel sounds, soft. ABSENT: distended, guarding, mass, organolmegaly, rebound, tenderness Rectal exam: PRESENT: deferred Extremities exam: PRESENT: full ROM. ABSENT: calf tenderness, clubbing, pedal edema Neurological exam: PRESENT: alert, awake, oriented to person, oriented to place, oriented to time, oriented to situation, CN II-XII grossly intact. ABSENT: motor sensory deficit Psychiatric exam: PRESENT: appropriate affect, normal mood. ABSENT: homicidal ideation, suicidal ideation Skin exam: PRESENT: dry, intact, warm. ABSENT: cyanosis, rash Results Laboratory Results: 02/11/20 04:49 02/11/20 04:49 02/09/20 02/10/20 02/10/20 15:18 17:50 23:32 WBC 10.7 H 8.8 RBC 3.09 L 2.98 L Hgb 9.5 L D 8.9 L Hct 27.1 L 25.8 L MCV 88 D 87 MCH 30.8 29.8 MCHC 35.1 34.3 RDW 19.4 H 19.5 H Plt Count 192 186 Seg Neutrophils % 70.6 Sodium Potassium Chloride Carbon Dioxide Anion Gap BUN Creatinine Est GFR ( Amer) Glucose Calcium Blood Type A POSITIVE Antibody Screen NEGATIVE 02/11/20 02/11/20 04:49 04:49 WBC 8.3 RBC 3.04 L Hgb 9.3 L Hct 26.3 L MCV 87 MCH 30.8 MCHC 35.5 RDW 19.8 H Plt Count 192 Seg Neutrophils % Sodium 136.5 L Potassium 3.3 L Chloride 112 H Carbon Dioxide 21 L Anion Gap 4 L BUN 10 Creatinine 0.56 Est GFR ( Amer) > 60 Glucose 100 Calcium 8.2 L Blood Type Antibody Screen Impressions: Abdomen/Pelvis CT 02/09/20 16:59 IMPRESSION: 1. Suspicious for ascending colitis. 2. Heavy atherosclerosis. 3. Changes of chronic pancreatitis. 4. Nonobstructive left nephrolithiasis. Assessment and Plan - Diagnosis (1) Acute blood loss anemia Is this a current diagnosis for this admission?: Yes Plan: Secondary to acute GI bleed. Now s/p 2 units PRBC Serial CBCs overnight stable GI is consulted; Dr. Ybarra plans for colonoscopy tomorrow. EGD completed today without significant findings. Continue PPI. Continue Carafate. Have discontinued home dose aspirin and Plavix. Follow CBC (2) Colitis Is this a current diagnosis for this admission?: Yes Plan: Improved; patient is afebrile, WBCs normal, decreased abdominal discomfort. No episodes of diarrhea. Unclear source, likely infectious. GI is consulted; plans for colonoscopy. Continue empiric treatment with IV Levaquin and p.o. metronidazole. Antiemetics and analgesics as needed. (3) GI bleed Qualifiers: GI bleed type/associated pathology: unspecified gastrointestinal hemorrhage type Qualified Code(s): K92.2 - Gastrointestinal hemorrhage, unspecified Is this a current diagnosis for this admission?: Yes Plan: Occult stool positive. EGD without significant findings. Remaining evaluation management as above. (4) Nausea & vomiting Qualifiers: Vomiting type: unspecified Vomiting Intractability: intractable Qualified Code(s): R11.2 - Nausea with vomiting, unspecified Is this a current diagnosis for this admission?: Yes Plan: Secondary to #1, symptomatic management, IV fluid resuscitation, follow-up chemistry Antiemetics as needed. (5) Tobacco abuse Is this a current diagnosis for this admission?: Yes Plan: Nicotine cessation encouraged, nicotine replacement therapy offered (6) Chronic pancreatitis Is this a current diagnosis for this admission?: Yes Plan: Outpatient GI follow-up. - Time Time Spent with patient: 25-34 minutes Smoking Cessation Education: 3 to 10 minutes Medications reviewed and adjusted accordingly: Yes Anticipated discharge: Home Within: within 48 hours
[2020-02-11] MEDS: LEVOFLOXACIN 750 MG/D5W RTU 750 MG/150 ML RTUPB IV SCH (17:09)
[2020-02-11] MEDS: NORMAL SALINE 1000 ML 1,000 ML with POTASSIUM CHLORIDE 20 MEQ, MAGNESIUM SULFATE 8 MEQ,... IV SCH ×5 (18:48)
[2020-02-11] MEDS: MONTELUKAST SODIUM 10 MG TABLET PO SCH (21:36)
[2020-02-11] MEDS: ATORVASTATIN CALCIUM 40 MG TABLET PO SCH (21:36)
[2020-02-11] MEDS: ACETAMINOPHEN 325 MG TABLET PO PRN (23:31)
[2020-02-12] MEDS: SUCRALFATE 1 GM TABLET PO SCH ×5 (05:26→23:18)
[2020-02-12] MEDS: METRONIDAZOLE 500 MG TABLET PO SCH ×4 (05:26→21:18)
[2020-02-12] MEDS: NORMAL SALINE 100 ML with PANTOPRAZOLE SODIUM 80 MG IV PRN ×4 (05:47→15:34)
[2020-02-12 06:10] LABS: HEMATOCRIT 27.6 % (36.0-47.0); HEMOGLOBIN 9.8 g/dL (12.0-15.5); MEAN CORPUSCULAR HGB CONC 35.4 g/dL (32.0-36.0); MEAN CORPUSCULAR VOLUME 87 fl (80-97); PLATELET COUNT 201 10^3/uL (150-450); RED BLOOD COUNT 3.16 10^6/uL (3.72-5.28); RED CELL DISTRIBUTION WIDTH 19.2 % (11.5-14.0); WHITE BLOOD COUNT 7.3 10^3/uL (4.0-10.5)
[2020-02-12 06:23] LABS: BLOOD UREA NITROGEN 3 mg/dL (7-20); GLUCOSE 98 mg/dL (75-110); POTASSIUM 3.3 mmol/L (3.6-5.0)
[2020-02-12 06:45] LABS: ANION GAP 5 (5-19); CARBON DIOXIDE 23 mmol/L (22-30); CHLORIDE 110 mmol/L (98-107)
[2020-02-12] MEDS: DULOXETINE HCL 30 MG CAPSULE.DR PO SCH ×2 (07:13→18:07)
[2020-02-12] MEDS: LORATADINE 10 MG TABLET PO SCH (09:01)
--- NOTE | 2020-02-12 12:13 | PDOC PROGRESS REPORT ---
Subjective Progress Note for:: 02/12/20 Subjective:: LINDA JOINER is a 69 year old female with a past medical history of hypertension, congestive heart failure, subclavian obstruction, COPD and chronic bronchitis who was admitted 02/09/2020 with acute blood loss anemia secondary to GI bleed and ascending colitis. Patient was seen on morning rounds. She was found resting in bed, comfortably, on . She is A&O x4. She reports that she is feeling much better today. She has no new complaints. Patient specifically denies fever, chills, chest pain, palpitations, dyspnea, orthopnea, cough, abdominal pain, nausea vomiting and diarrhea. No concerns per nursing. Reason For Visit: GI BLEED,ANEMIA,COLITIS Physical Exam Vital Signs: Temp Pulse Resp BP Pulse Ox 98.3 F 79 18 132/80 H 99 02/12/20 11:26 02/12/20 11:26 02/12/20 11:26 02/12/20 11:26 02/12/20 11:26 Intake & Output 02/11/20 02/12/20 02/13/20 06:59 06:59 06:59 Intake Total 3080 1793 0 Output Total 2000 150 300 Balance 1080 1643 -300 Weight 48.8 kg 59.2 kg General appearance: PRESENT: no acute distress, cooperative, thin, well- developed, well-nourished Head exam: PRESENT: atraumatic, normocephalic Eye exam: PRESENT: conjunctiva pink, EOMI, PERRLA. ABSENT: scleral icterus Mouth exam: PRESENT: moist, tongue midline Teeth exam: PRESENT: poor dentation Respiratory exam: PRESENT: clear to auscultation lisandra, symmetrical, unlabored. ABSENT: rales, rhonchi, wheezes Cardiovascular exam: PRESENT: RRR, +S1, +S2. ABSENT: diastolic murmur, rubs, sy stolic murmur Pulses: PRESENT: normal dorsalis pedis pul Vascular exam: PRESENT: normal capillary refill GI/Abdominal exam: PRESENT: normal bowel sounds, soft. ABSENT: distended, guarding, mass, organolmegaly, rebound, tenderness Rectal exam: PRESENT: deferred Extremities exam: PRESENT: full ROM. ABSENT: calf tenderness, clubbing, pedal edema Neurological exam: PRESENT: alert, awake, oriented to person, oriented to place, oriented to time, oriented to situation, CN II-XII grossly intact. ABSENT: motor sensory deficit Psychiatric exam: PRESENT: appropriate affect, normal mood. ABSENT: homicidal ideation, suicidal ideation Skin exam: PRESENT: dry, intact, warm. ABSENT: cyanosis, rash Results Laboratory Results: 02/12/20 05:24 02/12/20 05:24 02/12/20 02/12/20 05:24 05:24 WBC 7.3 RBC 3.16 L Hgb 9.8 L Hct 27.6 L MCV 87 MCH 31.0 MCHC 35.4 RDW 19.2 H Plt Count 201 Sodium 137.6 Potassium 3.3 L Chloride 110 H Carbon Dioxide 23 Anion Gap 5 BUN 3 L Creatinine 0.49 L Est GFR ( Amer) > 60 Glucose 98 Calcium 8.0 L Impressions: Abdomen/Pelvis CT 02/09/20 16:59 IMPRESSION: 1. Suspicious for ascending colitis. 2. Heavy atherosclerosis. 3. Changes of chronic pancreatitis. 4. Nonobstructive left nephrolithiasis. Assessment and Plan - Diagnosis (1) Acute blood loss anemia Is this a current diagnosis for this admission?: Yes Plan: Secondary to acute GI bleed. Now s/p 2 units PRBC Serial CBCs overnight stable GI is consulted; Dr. Ybarra plans for colonoscopy tomorrow. EGD completed without significant findings. Plans for colonoscopy today Continue PPI. Continue Carafate. Have discontinued home dose aspirin and Plavix. Follow CBC (2) Colitis Is this a current diagnosis for this admission?: Yes Plan: Improved; patient is afebrile, WBCs normal, resolved abdominal discomfort. No episodes of diarrhea. Unclear source, likely infectious. GI is consulted; plans for colonoscopy. Continue empiric treatment with IV Levaquin and p.o. metronidazole. Antiemetics and analgesics as needed. (3) GI bleed Qualifiers: GI bleed type/associated pathology: unspecified gastrointestinal hemorrhage type Qualified Code(s): K92.2 - Gastrointestinal hemorrhage, unspecified Is this a current diagnosis for this admission?: Yes Plan: Occult stool positive. EGD without significant findings. Colonoscopy today Remaining evaluation management as above. (4) Nausea & vomiting Qualifiers: Vomiting type: unspecified Vomiting Intractability: intractable Qualified Code(s): R11.2 - Nausea with vomiting, unspecified Is this a current diagnosis for this admission?: Yes Plan: Resolved. Secondary to #1, symptomatic management, IV fluid resuscitation, follow-up c hemistry Antiemetics as needed. (5) Tobacco abuse Is this a current diagnosis for this admission?: Yes Plan: Nicotine cessation encouraged, nicotine replacement therapy offered (6) Chronic pancreatitis Is this a current diagnosis for this admission?: Yes Plan: Outpatient GI follow-up. - Time Time Spent with patient: 15-24 minutes Medications reviewed and adjusted accordingly: Yes Anticipated discharge: Home Within: within 48 hours
[2020-02-12] MEDS ORDERED: PROPOFOL INJ 200 MG/20 ML VIAL IV ONE (13:16)
--- NOTE | 2020-02-12 15:33 | Operative Report ---
Operative Report DATE OF SURGERY: 02/12/20 Operative Report: The risk, benefits and alternatives of the procedure including the risk of bleeding, perforation requiring surgery have been explained to the patient in detail and informed consent has been obtained. Patient is taken to the operating room and placed in a left, lateral decubital position. Timeout was called. Propofol medication is administered. Rectal examination is done which did not reveal any masses, tears or fissures. An Olympus videoscope was int roduced into the patient's rectum. Scope was then carefully advanced all the way to the cecum cecum was identified by the usual anatomical landmarks of the ileocecal valve as well as the appendiceal office. Photodocumentation is obtained. Scope was then sequentially pulled back via the various segments of the colon including the ascending colon, hepatic flexure, transverse colon, splenic flexure, descending colon finding to the rectosigmoid portions of the colon. Retroflexion maneuvers performed. PREOPERATIVE DIAGNOSIS: GI bleeding negative upper endoscopy POSTOPERATIVE DIAGNOSIS: Cecal AVMs status post ablation OPERATION: Colonoscopy with ablation SURGEON: RAYA LOPEZ ANESTHESIA: LMAC TISSUE REMOVED OR ALTERED: None. COMPLICATIONS: None. ESTIMATED BLOOD LOSS: None. INTRAOPERATIVE FINDINGS: As noted above. PROCEDURE: Patient tolerated the procedure well. No immediate postprocedure complications are noted. Patient is sent back to her room in good condition. Wait on pathology. Follow H&H. No active bleeding noted.
[2020-02-12] MEDS: NORMAL SALINE 1000 ML 1,000 ML with POTASSIUM CHLORIDE 20 MEQ, MAGNESIUM SULFATE 8 MEQ,... IV SCH ×5 (18:06)
[2020-02-12] MEDS: LEVOFLOXACIN 750 MG/D5W RTU 750 MG/150 ML RTUPB IV SCH (18:07)
[2020-02-12] MEDS: ATORVASTATIN CALCIUM 40 MG TABLET PO SCH (21:18)
[2020-02-12] MEDS: MONTELUKAST SODIUM 10 MG TABLET PO SCH (21:18)
[2020-02-13] MEDS: NORMAL SALINE 100 ML with PANTOPRAZOLE SODIUM 80 MG IV PRN ×2 (05:22)
[2020-02-13] MEDS: SUCRALFATE 1 GM TABLET PO SCH ×2 (05:22→11:42)
[2020-02-13] MEDS: METRONIDAZOLE 500 MG TABLET PO SCH ×2 (05:22→13:01)
[2020-02-13 05:52] LABS: HEMATOCRIT 25.5 % (36.0-47.0); MEAN CORPUSCULAR HEMOGLOBIN 31.3 pg (27.0-33.4); MEAN CORPUSCULAR HGB CONC 35.3 g/dL (32.0-36.0); MEAN CORPUSCULAR VOLUME 89 fl (80-97); PLATELET COUNT 205 10^3/uL (150-450); RED BLOOD COUNT 2.88 10^6/uL (3.72-5.28); RED CELL DISTRIBUTION WIDTH 18.7 % (11.5-14.0); WHITE BLOOD COUNT 7.5 10^3/uL (4.0-10.5)
[2020-02-13 06:18] LABS: ANION GAP 6 (5-19); BLOOD UREA NITROGEN 5 mg/dL (7-20); CARBON DIOXIDE 21 mmol/L (22-30); CHLORIDE 109 mmol/L (98-107); GLUCOSE 108 mg/dL (75-110); POTASSIUM 3.5 mmol/L (3.6-5.0)
[2020-02-13] MEDS ORDERED: POTASSIUM CHLORIDE 10 MEQ TABLET.ER PO ONE ×2 (07:27→10:00)
[2020-02-13] MEDS: LORATADINE 10 MG TABLET PO SCH (09:57)
[2020-02-13] MEDS: DULOXETINE HCL 30 MG CAPSULE.DR PO SCH (09:57)
[2020-02-13] MEDS ORDERED: LEVOFLOXACIN 750 MG TABLET PO SCH (10:00)
[2020-02-13 14:16] VITALS: BP 120/54
--- NOTE | 2020-02-13 15:31 | PDOC DISCHARGE SUMMARY ---
Impression - Admit/DC Date/PCP Admission Date/Primary Care Provider: 02/09/20 19:25 Discharge Date: 02/13/20 - Discharge Diagnosis (1) Acute blood loss anemia Is this a current diagnosis for this admission?: Yes (2) Colitis Is this a current diagnosis for this admission?: Yes (3) GI bleed Is this a current diagnosis for this admission?: Yes (4) Nausea & vomiting Is this a current diagnosis for this admission?: Yes (5) Tobacco abuse Is this a current diagnosis for this admission?: Yes (6) Chronic pancreatitis Is this a current diagnosis for this admission?: Yes - Additional Information Resuscitation Status: Full Code Discharge Diet: Cardiac Discharge Activity: Activity As Tolerated, Balance Activity w/Rest, Slowly Increase Activity Prescriptions: Sucralfate [Carafate 1 gm Tablet] 1 gm PO Q6 #120 tablet Metronidazole [Flagyl 500 mg Tablet] 500 mg PO Q8 #20 tablet Folic Acid [Folvite 1 mg Tablet] 1 mg PO QPM #90 tablet Levofloxacin [Levaquin 750 mg Tablet] 750 mg PO DAILY #7 tablet Multivitamin [Tab-A-Berta (Multiple Vitamin) Tablet] 1 tab PO QPM #90 tablet Thiamine HCl [Thiamine 100 mg Tablet] 100 mg PO QPM #90 tablet Tramadol HCl [Ultram 50 mg Tablet] 50 mg PO Q6HP PRN #20 tablet PRN Reason: Home Medications: Amlodipine Besylate [Norvasc 2.5 mg Tablet] 2.5 mg PO DAILY 02/09/20 Aspirin [Adult Low Dose Aspirin EC] 81 mg PO DAILY 02/09/20 Atorvastatin Calcium [Lipitor 40 mg Tablet] 40 mg PO QHS 02/09/20 Cholecalciferol (Vitamin D3) [Vitamin D3 1000 Unit Tablet] 1,000 unit PO DAILY 02/09/20 Clopidogrel Bisulfate [Plavix 75 mg Tablet] 75 mg PO DAILY 02/09/20 Duloxetine HCl [Cymbalta 30 mg Capsule.dr] 30 mg PO QAM 02/09/20 Duloxetine HCl [Cymbalta 30 mg Capsule.dr] 60 mg PO QPM 02/09/20 Fexofenadine HCl [Michaela Allergy] 180 mg PO DAILY 02/09/20 Irbesartan 150 mg PO DAILY 02/09/20 Montelukast Sodium [Singulair 10 mg Tablet] 10 mg PO QHS 02/09/20 Nystatin [Mycostatin Ointment 15 gm] 1 applic TOP BIDP PRN 02/09/20 Omeprazole 20 mg PO QAM 02/09/20 Acetaminophen [Tylenol 325 mg Tablet] 650 mg PO Q6HP PRN tablet 02/13/20 Folic Acid [Folvite 1 mg Tablet] 1 mg PO QPM #90 tablet 02/13/20 Levofloxacin [Levaquin 750 mg Tablet] 750 mg PO DAILY #7 tablet 02/13/20 Metronidazole [Flagyl 500 mg Tablet] 500 mg PO Q8 #20 tablet 02/13/20 Multivitamin [Tab-A-Berta (Multiple Vitamin) Tablet] 1 tab PO QPM #90 tablet 02/13/20 Sucralfate [Carafate 1 gm Tablet] 1 gm PO Q6 #120 tablet 02/13/20 Thiamine HCl [Thiamine 100 mg Tablet] 100 mg PO QPM #90 tablet 02/13/20 Tramadol HCl [Ultram 50 mg Tablet] 50 mg PO Q6HP PRN #20 tablet 02/13/20 History of Present Illiness History of Present Illness: Per H&P by Dr. Nice: LINDA JOINER is a 69 year old female with a past medical history of hypertension, congestive heart failure, subclavian obstruction, COPD and chronic bronchitis. She presents with 12 hours of abdominal pain nausea vomiting and diarrhea. Vomiting is without blood and consisted of oral intake. Diarrhea was black in color. She denies suspect meals, infectious contacts friends or family with similar symptoms or previous episode. In the emergency department she is found to have leukocytosis, anemia and Hemoccult positive stools. CT reveals ascending colitis. Her technical fellow Dr. Ybarra is consulted and she is started on Levaquin and Flagyl and referred to the hospitalist for admission. Hospital Course Hospital Course: (1) Acute blood loss anemia Secondary to acute GI bleed. Now s/p 2 units PRBC Serial CBCs overnight stable; Hgb ~9 GI is consulted. EGD completed without significant findings. Colonoscopy revealed cecal AVMs; received ablation therapy. Patient was placed on Protonix drip; at discharge, she is to resume her home prescribed omeprazole. She will also continue on Carafate. Recommend she hold her aspirin and Plavix for 2 weeks. (2) Colitis Improved; patient is afebrile, WBCs normal, resolved abdominal discomfort. No episodes of diarrhea. Now tolerating a regular diet without discomfort, increased stools, melena/hematochezia. Blood cultures negative at 72 hours. Unfortunately, stool cultures not obtained. She was empirically placed on IV Levaquin and p.o. metronidazole. She is transitioned to p.o. Levaquin and metronidazole to complete a 10-day course of therapy post discharge. Provided Antiemetics and analgesics as needed. (3) GI bleed Occult stool positive. EGD without significant findings. Colonoscopy revealed cecal AVMs; treated with ablation. Remaining evaluation and management as above. (4) Nausea & vomiting Resolved. Secondary to #1 (5) Tobacco abuse Nicotine cessation encouraged, nicotine replacement therapy offered (6) Chronic pancreatitis Outpatient GI follow-up. Physical Exam Vital Signs: Temp Pulse Resp BP Pulse Ox 98.3 F 96 18 127/81 H 99 02/13/20 11:38 02/13/20 11:38 02/13/20 11:38 02/13/20 11:38 02/13/20 11:38 Intake & Output 02/12/20 02/13/20 02/14/20 06:59 06:59 06:59 Intake Total 1793 2373 787 Output Total 150 1300 500 Balance 1643 1073 287 Weight 59.2 kg 57.6 kg General appearance: PRESENT: no acute distress, cooperative, thin, well- developed Head exam: PRESENT: atraumatic, normocephalic Eye exam: PRESENT: conjunctiva pink, EOMI, PERRLA. ABSENT: scleral icterus Ear exam: PRESENT: normal external ear exam Mouth exam: PRESENT: moist, tongue midline Respiratory exam: PRESENT: clear to auscultation lisandra, symmetrical, unlabored. ABSENT: rales, rhonchi, wheezes Cardiovascular exam: PRESENT: RRR, +S1, +S2. ABSENT: diastolic murmur, rubs, systolic murmur Pulses: PRESENT: normal dorsalis pedis pul Vascular exam: PRESENT: normal capillary refill GI/Abdominal exam: PRESENT: normal bowel sounds, soft. ABSENT: distended, guarding, mass, organolmegaly, rebound, tenderness Rectal exam: PRESENT: deferred Extremities exam: PRESENT: full ROM. ABSENT: calf tenderness, clubbing, pedal edema Neurological exam: PRESENT: alert, awake, oriented to person, oriented to place, oriented to time, oriented to situation, CN II-XII grossly intact. ABSENT: motor sensory deficit Psychiatric exam: PRESENT: appropriate affect, normal mood. ABSENT: homicidal ideation, suicidal ideation Skin exam: PRESENT: dry, intact, warm. ABSENT: cyanosis, rash Results Laboratory Results: WBC 7.5 10^3/uL (4.0-10.5) 02/13/20 05:08 RBC 2.88 10^6/uL (3.72-5.28) L 02/13/20 05:08 Hgb 9.0 g/dL (12.0-15.5) L 02/13/20 05:08 Hct 25.5 % (36.0-47.0) L 02/13/20 05:08 MCV 89 fl (80-97) 02/13/20 05:08 MCH 31.3 pg (27.0-33.4) 02/13/20 05:08 MCHC 35.3 g/dL (32.0-36.0) 02/13/20 05:08 RDW 18.7 % (11.5-14.0) H 02/13/20 05:08 Plt Count 205 10^3/uL (150-450) 02/13/20 05:08 Lymph % (Auto) 18.8 % (13-45) 02/10/20 17:50 [place] % (Auto) 9.3 % (3-13) 02/10/20 17:50 Eos % (Auto) 1.0 % (0-6) 02/10/20 17:50 Baso % (Auto) 0.3 % (0-2) 02/10/20 17:50 Reticulocyte # 0.046 10^6/uL (0.028-0.122) 02/10/20 05:46 Absolute Neuts (auto) 7.5 10^3/uL (1.7-8.2) 02/10/20 17:50 Absolute Lymphs (auto) 2.0 10^3/uL (0.5-4.7) 02/10/20 17:50 Absolute Monos (auto) 1.0 10^3/uL (0.1-1.4) 02/10/20 17:50 Absolute Eos (auto) 0.1 10^3/uL (0.0-0.6) 02/10/20 17:50 Absolute Basos (auto) 0.0 10^3/uL (0.0-0.2) 02/10/20 17:50 Total Counted 100 02/09/20 15:18 Seg Neutrophils % 70.6 % (42-78) 02/10/20 17:50 Seg Neuts % (Manual) 88 % (42-78) H 02/09/20 15:18 Band Neutrophils % 3 % (3-5) 02/09/20 15:18 Lymphocytes % (Manual) 5 % (13-45) L 02/09/20 15:18 Monocytes % (Manual) 4 % (3-13) 02/09/20 15:18 Eosinophils % (Manual) 0 % (0-6) 02/09/20 15:18 Basophils % (Manual) 0 % (0-2) 02/09/20 15:18 Abs Neuts (Manual) 20.9 10^3/uL (1.7-8.2) H 02/09/20 15:18 Abs Lymphs (Manual) 1.2 10^3/uL (0.5-4.7) 02/09/20 15:18 Abs Monocytes (Manual) 0.9 10^3/uL (0.1-1.4) 02/09/20 15:18 Absolute Eos (Manual) 0.0 10^3/uL (0.0-0.6) 02/09/20 15:18 Abs Basophils (Manual) 0.0 10^3/uL (0.0-0.2) 02/09/20 15:18 Reticulocyte # (manual) Cancelled 02/10/20 04:45 Platelet Estimate Cancelled 02/10/20 04:45 Platelet Comment ADEQUATE 02/09/20 15:18 Anisocytosis SLIGHT 02/09/20 15:18 Retic Count Cancelled 02/10/20 04:45 Retic Count (manual) Cancelled 02/10/20 04:45 Retic Count (auto) 2.80 % (0.66-2.85) 02/10/20 05:46 Absolute Retic Cancelled 02/10/20 04:45 Sodium 135.7 mmol/L (137-145) L 02/13/20 05:08 Potassium 3.5 mmol/L (3.6-5.0) L 02/13/20 05:08 Chloride 109 mmol/L (98-107) H 02/13/20 05:08 Carbon Dioxide 21 mmol/L (22-30) L 02/13/20 05:08 Anion Gap 6 (5-19) 02/13/20 05:08 BUN 5 mg/dL (7-20) L 02/13/20 05:08 Creatinine 0.53 mg/dL (0.52-1.25) 02/13/20 05:08 Est GFR ( Amer) > 60 (>60) 02/13/20 05:08 Est GFR (MDRD) Non-Af > 60 (>60) 02/13/20 05:08 Glucose 108 mg/dL (75-110) 02/13/20 05:08 Calcium 8.0 mg/dL (8.4-10.2) L 02/13/20 05:08 Magnesium 1.7 mg/dL (1.6-2.3) 02/09/20 15:18 Iron 159.4 ug/dL (37-170) 02/10/20 04:45 TIBC 224 ug/dL (250-450) L 02/10/20 04:45 % Saturation 71 % 02/10/20 04:45 Ferritin 65.60 ng/mL (11.1-264.0) 02/10/20 04:45 Total Bilirubin 0.3 mg/dL (0.2-1.3) 02/09/20 15:18 Direct Bilirubin 0.0 mg/dL (0.0-0.4) 02/09/20 15:18 Neonat Total Bilirubin Not Reportable 02/09/20 15:18 Neonat Direct Bilirubin Not Reportable 02/09/20 15:18 Neonat Indirect Bili Not Reportable 02/09/20 15:18 AST 15 U/L (14-36) 02/09/20 15:18 ALT 9 U/L (<35) 02/09/20 15:18 Alkaline Phosphatase 40 U/L (38-126) 02/09/20 15:18 Total Protein 5.4 g/dL (6.3-8.2) L 02/09/20 15:18 Albumin 3.1 g/dL (3.5-5.0) L 02/09/20 15:18 Lipase 44.3 U/L (23-300) 02/10/20 04:45 Vitamin B12 382.0 pg/mL (239-931) 02/10/20 04:45 Folate 10.10 ng/mL (>2.76) 02/10/20 04:45 Urine Color YELLOW 02/09/20 23:22 Urine Appearance CLEAR 02/09/20 23:22 Urine pH 6.0 (5.0-9.0) 02/09/20 23:22 Ur Specific [place] 1.032 02/09/20 23:22 Urine Protein NEGATIVE mg/dL (NEGATIVE) 02/09/20 23:22 Urine Glucose (UA) NEGATIVE mg/dL (NEGATIVE) 02/09/20 23:22 Urine Ketones NEGATIVE mg/dL (NEGATIVE) 02/09/20 23:22 Urine Blood LARGE (NEGATIVE) H 02/09/20 23:22 Urine Nitrite NEGATIVE (NEGATIVE) 02/09/20 23:22 Urine Bilirubin NEGATIVE (NEGATIVE) 02/09/20 23:22 Urine Urobilinogen NEGATIVE mg/dL (<2.0) 02/09/20 23:22 Ur Leukocyte Esterase TRACE (NEGATIVE) H 02/09/20 23:22 Urine WBC (Auto) 16 /HPF 02/09/20 23:22 Urine RBC (Auto) 108 /HPF 02/09/20 23:22 Urine Bacteria (Auto) TRACE /HPF 02/09/20 23:22 Squamous Epi Cells Auto <1 /HPF 02/09/20 23:22 Urine Ascorbic Acid NEGATIVE (NEGATIVE) 02/09/20 23:22 POC Stool Occult Blood POSITIVE (NEGATIVE) 02/09/20 16:49 Slides for Path Review Cancelled 02/10/20 04:45 Blood Type A POSITIVE 02/09/20 15:18 Blood Type Confirm A POSITIVE 02/10/20 08:56 Antibody Screen NEGATIVE 02/09/20 15:18 Crossmatch See Detail 02/09/20 15:18 Impressions: Abdomen/Pelvis CT 02/09/20 16:59 IMPRESSION: 1. Suspicious for ascending colitis. 2. Heavy atherosclerosis. 3. Changes of chronic pancreatitis. 4. Nonobstructive left nephrolithiasis. Plan Plan of Treatment: Patient is discharged home in stable condition. She is advised to follow-up with her primary care provider within 1 week. She is instructed to complete her full course of antibiotics. She is educated on the importance of avoiding alcohol while on metronidazole. She is instructed to hold her aspirin and Plavix for 2 weeks and then to resume as was previously prescribed. Otherwise, she should resume her normal home medication regiment. She is instructed to return to emergency department as needed for any concerning symptoms. Time Spent: Greater than 30 Minutes Stroke Is this a Stroke Patient?: No Acute Heart Failure - Is this a Heart Failure Patient?: No
[2020-02-13] MEDS ORDERED: PANTOPRAZOLE SODIUM 40 MG TABLET.DR PO SCH (17:00)
[2020-02-13] MEDS ORDERED: FOLIC ACID 1 MG TABLET PO SCH (18:00)
[2020-02-13] MEDS ORDERED: MULTIVITAMIN TABLET PO SCH (18:00)
[2020-02-13] MEDS ORDERED: THIAMINE HCL 100 MG TABLET PO SCH (18:00)
== END 2020-02-13 15:35 | disposition home or self-care (01) | DRG 378 ==
LOC: ER 14:38 → EH 19:25 → 3S 20:48
PROVIDERS: ADMIT Internal Medicine; ATTEND Registered Nurse
PROC: 30233N1 Transfusion of Nonautologous Red Blood Cells into Peripheral Vein, Percutaneous Approach (ICD-10-PCS; 2020-02-10)
PROC: 0DB78ZX Excision of Stomach, Pylorus, Via Natural or Artificial Opening Endoscopic, Diagnostic (ICD-10-PCS; 2020-02-11)
PROC: 0W3P8ZZ Control Bleeding in Gastrointestinal Tract, Via Natural or Artificial Opening Endoscopic (ICD-10-PCS; principal; 2020-02-12 13:00)
DX: K55.21 Angiodysplasia of colon with hemorrhage (principal); D62 Acute posthemorrhagic anemia; K86.1 Other chronic pancreatitis; K52.9 Noninfective gastroenteritis and colitis, unspecified; J44.9 Chronic obstructive pulmonary disease, unspecified; K29.70 Gastritis, unspecified, without bleeding; I11.0 Hypertensive heart disease with heart failure; F17.200 Nicotine dependence, unspecified, uncomplicated; I50.9 Heart failure, unspecified; Z88.0 Allergy status to penicillin; Z88.2 Allergy status to sulfonamides; Z90.49 Acquired absence of other specified parts of digestive tract; Z79.82 Long term (current) use of aspirin; Z79.899 Other long term (current) drug therapy; Z86.010 Personal history of colon polyps
CPT/HCPCS: 36415; 36430; 43239; 45382; 731; 74177; 80048; 80053; 81001; 811; 82270; 82607; 82728; 82746; 83540; 83550; 83690; 83735; 85025; 85027; 85045; 86850; 86900; 86901; 86920; 87040; 88305; 96361; 96365; 96375; 99285; C1758; C9113; J0330; J1956; J2001; J2405; J2704; J3411; J3475; J3480; J3490; J7030; J7050; P9016